=== PATIENT | male | born 1995 | race African-American/Black ===

== ENCOUNTER 2018-03-17 12:19 | Emergency (ER) | payer MEDICAID, SELFPAY, OTHER ==
[2018-03-17] MEDS: AUGMENTIN 875 MG TAB PO (14:41)
[2018-03-17] MEDS: ACETAMINOPHEN 325 MG TAB PO (14:41)
== END 2018-03-17 14:42 | disposition home or self-care (01) ==
LOC: M ED 12:19
DX: K04.7 Periapical abscess without sinus (principal); K02.9 Dental caries, unspecified; R22.0 Localized swelling, mass and lump, head; Z72.0 Tobacco use
CPT/HCPCS: 99282